=== PATIENT | female | born 1940 | race Caucasian/White ===

== ENCOUNTER 2018-05-11 10:31 | Emergency (ER) | payer OTHER ==
[~2018-05-11] VITALS: Ht 157.5 cm; Wt 63.5 kg
[~2018-05-11 10:31] MED LIST: B-121000 MCG PO; CALCIUM; CHOLESTEROL MED; GLUCOSAMINE-CH1 EA33 PO; LIPITOR20 MG PO; LISINOPRIL40 MG PO; OSTEO BI-FLEX1 EAC2 PO; RESTORIL15 MG PO; SYNTHROID75 MCG PO; TRANSDERM-SCO1 PATC1 TD; VESICARE 5 MG TA5 M1 PO; VESICARE10 M1 PO; VITD; [UNRECOGNIZED DRUG - OTHER] PO
[2018-05-11] MEDS ORDERED: ATIVAN0.5 MG PO (10:43)
[2018-05-11] MEDS ORDERED: NEURONTIN 300300 M1 PO (10:43)
[2018-05-11 11:10] LABS: ABSOLUTE EOSINOPHILS 0.1 thou/uL (0.0-0.7); ABSOLUTE LYMPHOCYTES 2.3 thou/uL (0.8-5.3); ABSOLUTE MONOCYTES 0.5 thou/uL (0.0-1.2); ABSOLUTE NEUTROPHILS 2.9 thou/uL (1.6-8.1); BASOPHILS 0.6 %; EOSINOPHILS 1.4 %; HEMATOCRIT 48.2 % (37.0-47.0); HEMOGLOBIN 16.2 gm/dL (12.0-15.0); LYMPHOCYTES 39.5 %; MCH 30.6 pg (26.0-34.0); MCHC 33.7 g/dL (28.0-37.0); MCV 90.8 fL (80.0-100.0); MONOCYTES 8.1 %; MPV 8.7 fl. (7.2-11.1); NUCLEATED RBCS 0 /100WBC; PLATELET COUNT* 272 thou/uL (150-400); POLYS 50.4 %; RBC 5.31 mil/uL (4.20-5.00); RDW-CV 13.4 % (10.5-14.5); WBC 5.7 thou/uL (4.0-11.0)
[2018-05-11 11:17] LABS: ANION GAP 7 mmol/L (7-16); BUN 14 mg/dL (7-18); CALCIUM 9.9 mg/dL (8.5-10.1); CHLORIDE 105 mmol/L (98-107); CO2 26 mmol/L (21-32); GLUCOSE 91 mg/dL (70-99); POTASSIUM 4.3 mmol/L (3.5-5.1); SODIUM 138 mmol/L (136-145)
[2018-05-11 11:23] LABS: ALBUMIN 3.5 g/dL (3.4-5.0); ALKALINE PHOSPHATASE 94 U/L (46-116); LIPASE 279 U/L (73-393); SGOT 28 U/L (15-37); SGPT 51 U/L (30-65); TOTAL BILIRUBIN 0.4 mg/dL (<0.1-1.0); TOTAL PROTEIN 7.3 g/dL (6.4-8.2); TROPONIN-I LEVEL <0.06 ng/mL (<0.06)
[2018-05-11 11:39] LABS: URINE BILIRUBIN NEGATIVE (Negative); URINE BLOOD TRACE (Negative); URINE CLARITY CLEAR; URINE COLOR YELLOW; URINE GLUCOSE-RANDOM NEGATIVE (Negative); URINE KETONES NEGATIVE (Negative); URINE LEUKOCYTES 1+ (Negative); URINE NITRITE NEGATIVE (Negative); URINE PROTEIN NEGATIVE (Negative); URINE UROBILINOGEN 0.2 E.U./dl (0.2-1.0)
[2018-05-11 11:48] LABS: BACTERIA 1-9 Few /HPF (None Seen); CASTS None Seen /LPF (None Seen); CRYSTALS None Seen /LPF (None Seen); MUCUS 0-3 Light strn/LPF (None Seen); SQUAMOUS 0-3 Few /LPF (0-3); URINE RBC 0-2 Rare /HPF (0-2); URINE WBC 0-5 Rare /HPF (0-5)
[2018-05-11 13:27] VITALS: BP 139/88
--- NOTE | 2018-05-11 17:38 | EKG ---
[place] [address] ELECTROCARDIOGRAM REPORT Name: AHMET BRASWELL [id number] Admission: 05/11/18 Attend Phys: Discharge: 05/11/18 Date of : 36 Report #: [id number] THIS REPORT FOR: //name// [facility] ED Test Date: 2018-05-11 Test Time: 11:15:51 Pat Name: AHMETMary Jo BRASWELL Department: Room: Gender: F [employer] Worker: BELLE : 1940 Requested By: Wanda Rosario Order Number: [id number] MD: Mainor Quintanilla Measurements Intervals [place] Rate: 58 P: 20 ND: 180 QRS: -35 QRSD: 104 T: 66 QT: 427 QTc: 420 Interpretive Statements Sinus rhythm Probable left atrial enlargement Inferior infarct, old Consider anterior infarct Compared to ECG 08/16/2013 11:33:03 no change Electronically Signed On 05-11-2018 17:38:39 CDT by Mainor Quintanilla [email or web address] <ELECTRONICALLY SIGNED> By: Mainor Quintanilla MD, [facility] 05/11/18 1738 1115 1115 Mainor Quintanilla MD, [facility] /EPI
== END 2018-05-11 13:27 | disposition home or self-care (01) ==
LOC: M.ERS 10:31
PROVIDERS: Nurse Practitioner Family
DX: K59.00 Constipation, unspecified (principal); R42 Dizziness and giddiness; I10 Essential (primary) hypertension; E03.9 Hypothyroidism, unspecified; Z90.89 Acquired absence of other organs; Z90.710 Acquired absence of both cervix and uterus; Z88.0 Allergy status to penicillin